=== PATIENT | female | born 1995 | race Caucasian/White ===

== ENCOUNTER 2018-04-19 09:10 | Emergency (ER) | payer SELFPAY ==
[~2018-04-19] VITALS: Ht 172.7 cm; Wt 64.0 kg
[2018-04-19] MEDS ORDERED: IBUPROFEN 600MG TABLET PO STA (11:04)
[2018-04-19] MEDS ORDERED: LORAZEPAM 0.5MG TABLET PO ONE (11:15)
[2018-04-19 12:31] LABS: CLARITY URINE CLEAR (CLEAR); COLOR URINE YELLOW (YELLOW); KETONES URINE NEGATIVE (NEGATIVE); LEUKOCYTE ESTERASE URINE NEGATIVE (NEGATIVE); NITRITE URINE NEGATIVE (NEGATIVE); OCCULT BLOOD URINE NEGATIVE (NEGATIVE); PROTEIN URINE NEGATIVE (NEGATIVE); SPECIFIC GRAVITY URINE 1.002 (1.005-1.030); UROBILINOGEN URINE 0.2 E.U./dL (0.2-1.0)
[2018-04-19 12:40] VITALS: BP 118/61
== END 2018-04-19 12:41 | disposition home or self-care (01) ==
LOC: ER 10:52
DX: F41.8 Other specified anxiety disorders (principal); R03.0 Elevated blood-pressure reading, without diagnosis of hypertension
CPT/HCPCS: 81025; 93005; 99285